=== PATIENT | female | born 1940 | race Caucasian/White ===

== ENCOUNTER 2023-09-20 00:37 | Emergency (ER) | payer MEDICARE, SELFPAY ==
--- NOTE | 2023-09-20 | ECG_ITS ---
Test Reason : SOB Blood Pressure : / mmHG Vent. Rate : 066 BPM Atrial Rate : 066 BPM P-R Int : 168 ms QRS Dur : 066 ms QT Int : 372 ms P-R-T Axes : 072 016 035 degrees QTc Int : 389 ms Normal sinus rhythm Septal infarct , age undetermined Abnormal ECG No previous ECGs available Referred By: Pierre Lauren Electronically Signed By:MARCY IYER
--- NOTE | ~2023-09-20 | XR_ITS ---
EXAMINATION: XR CHEST CLINICAL INFORMATION: Shortness of breath. COMPARISON: 07/22/2014 TECHNIQUE: Frontal view of the chest was obtained. FINDINGS: The cardiomediastinal silhouette is stable. There is no focal lung consolidation or pleural effusion. The bony structures and soft tissues are unremarkable. XR/XR chest 1V IMPRESSION: No acute cardiopulmonary process.
[2023-09-20 00:55] VITALS: BP 196/77; PULSE 69; RESP 18; TEMP 36.3; O2SAT 96; BMI 19.9
--- NOTE | 2023-09-20 01:03 | ED.GENADULT ---
HPI - General Adult General Chief complaint: General Medical Stated complaint: nausea/vomiting Time Seen by Provider: 09/20/23 00:49 Source: patient Mode of arrival: EMS Limitations: no limitations History of Present Illness HPI narrative: Patient history of hypertension COPD anxiety smoker been feeling weak since evening went to sleep on the couch woke up felt heart was beating fast , slightly diaphoretic no chest discomfort anxious worried about her weakness no upper respiratory symptoms does have chronic cough Related Data Allergies Allergy/AdvReac Type Severity Reaction Status Date / Time Sulfa (Sulfonamide Allergy Rash Verified 09/20/23 00:55 Antibiotics) Review of Systems Review of Systems: Yes all other systems are reviewed and are negative [facility] Past Medical History Medical History (Updated 09/20/23 @ 04:07 by Pierre Lauren MD) Anxiety COPD (chronic obstructive pulmonary disease) Hypertension Social History Social History Advance Directives: No Advance Directives Information Provided: No Physical Exam ED Vital Signs: Vital Signs - 24 hr 09/20/23 00:55 09/20/23 01:06 09/20/23 01:49 Temperature 97.4 F 98.0 F Pulse Rate 69 71 58 Respiratory Rate 18 15 18 Blood Pressure 196/77 H 160/60 H 158/69 H Pulse Oximetry 96 97 96 Oxygen Delivery Method Room Air Room Air Room Air 09/20/23 03:32 09/20/23 06:13 Temperature 98.0 F 98.2 F Pulse Rate 75 81 Respiratory Rate 18 16 Blood Pressure 158/64 H 152/67 H Pulse Oximetry 92 92 Oxygen Delivery Method Room Air Room Air BMI result Body Mass Index 19.9 Appearance: Alert. Oriented X3. No acute distress. Anxious Eyes: PERRLA, No Nystagmus ENT: Pharynx normal. Oral Mucosa moist Neck: Normal inspection. Neck supple. CVS: Normal heart rate and rhythm. Pulses normal. Respiratory: No respiratory distress. Equal air entry bilateral, prolonged expiratory Abdomen: Soft and nontender. Bowel sounds are present, Skin: Skin warm and dry. Normal skin color. Normal skin turgor. Extremities: No lower extremity edema. No calf tenderness Neuro: Oriented X 3. No motor deficit. No sensory deficit.No cerebellar signs , cranial nerves II-XII intact Medical Decision Making Medical Decision Making MDM Narrative: Patient is stable labs stable vitals with nonspecific weakness likely with discharge patient home advised to continue her medications and follow with PCP Differential Diagnosis Differential Diagnoses: The differential diagnosis associated with the presentation includes Viral syndrome/anxiety Lab Data [facility] Lab Attestation statement: I reviewed the patient's lab results. 09/20/23 01:16 09/20/23 01:16 Labs: Lab Results 09/20/23 09/20/23 Range/Units 01:16 01:59 WBC 7.0 (4.8-10.8) X10*3/uL RBC 5.23 (4.20-5.50) X10*6/uL Hgb 14.9 (12.0-16.0) g/dl Hct 44.0 (37.0-47.0) % MCV 84.1 (80.0-98.0) fL MCH 28.5 (27.0-33.0) pg MCHC 33.9 (31.0-35.0) g/dl RDW 12.9 (11.0-16.0) % Plt Count (160-400) X10*3/uL MPV 12.8 H (9.4-12.3) fL Immature Gran % (Auto) 0.1 (0.0-0.4) % Neut % (Auto) 51.7 (45-73) % Lymph % (Auto) 36.0 (20-40) % [place] % (Auto) 7.7 (2-11) % Eos % (Auto) 3.6 (0-4) % Baso % (Auto) 0.9 (0-2) % Lymph # (Auto) 2.5 (1.2-4.9) X10*3/uL [place] # (Auto) 0.5 (0.1-1.2) X10*3/uL Eos # (Auto) 0.3 (0.0-0.4) X10*3/uL Baso # (Auto) 0.1 (0.0-0.2) X10*3/uL Abs Immat Gran (auto) 0.01 (0.00-0.03) X10*3/uL Absolute Neuts (auto) 3.6 (2.0-8.3) x10*3/uL Absolute Nucleated RBC 0.000 (0.0-0.012) X10*3/uL Nucleated RBC % (auto) 0.0 (0.0-0.2) /100WBC Sodium 142 (135-145) mmol/L Potassium 4.3 (3.3-5.1) mmol/L Chloride 106 (96-108) mmol/L Carbon Dioxide 28 (22-29) mmol/L Anion Gap 12 (12-20) BUN 21 H (9-16) mg/dL Creatinine 1.24 (0.5-1.4) mg/dL Estim Creat Clear Calc 31.3 Estimated GFR 42 Random Glucose 92 (60-115) mg/dL Calcium 9.5 (8.4-10.2) mg/dL Magnesium 1.9 (1.6-2.6) mg/dL Total Bilirubin 0.4 (0.0-1.0) mg/dL AST 28 (5-31) U/L ALT 22 (0-31) U/L Alkaline Phosphatase 65 (39-117) U/L Troponin I High Sens 8.7 (<3.5-17.0) ng/L Total Protein 7.0 (6.5-8.0) g/dL Albumin 4.1 (3.5-5.0) g/dL Urine Color Yellow Urine Appearance Clear Urine pH 6.5 (5.0-9.0) Ur Specific [place] 1.015 (1.005-1.025) Urine Protein 100 (2+) H (Neg-Trace) mg/dL Urine Glucose (UA) Negative (Negative) mg/dL Urine Ketones Negative (Negative) mg/dL Urine Blood Negative (Negative) Urine Nitrite Negative (Negative) Ur Leukocyte Esterase Moderate (2+) H (Negative) Urine RBC 0-2 (0-2) /HPF Urine WBC 11-20 H (0-5) /HPF Ur Squamous Epith Cells 0-2 (0-2) /HPF Urine Bacteria None Seen (None Seen) Hyaline Casts 0-2 (0-2) /LPF COVID-19 (DIONE) Negative (Negative) COVID-19 Clin Com See Note Influenza Type A (MARILIA) Negative (Negative) Influenza Type B (MARILIA) Negative (Negative) Influenza A & B Note See Note Discharge Plan Discharge Clinical Impression: Anxiety, Weakness Patient Disposition: Home, Self-Care Instructions: Weakness (ED), Anxiety (ED) Additional Instructions: Continue your medications Drink and eat well Follow with PCP
[2023-09-20 01:06] VITALS: BP 160/60; PULSE 71; RESP 15; O2SAT 97
[2023-09-20 01:24] LABS: MANUAL DIFF FLAG NO
[2023-09-20 01:25] LABS: Basophils Absolute Auto 0.1 X10*3/uL (0.0-0.2); Basophils Percent Auto 0.9 % (0-2); Eosinophils Absolute Auto 0.3 X10*3/uL (0.0-0.4); Eosinophils Percent Auto 3.6 % (0-4); Hemoglobin 14.9 g/dl (12.0-16.0); Imm Gran Abs Auto 0.01 X10*3/uL (0.00-0.03); Imm Gran Pct Auto 0.1 % (0.0-0.4); Lymphocytes Absolute Auto 2.5 X10*3/uL (1.2-4.9); Mean Corpuscular HGB Conc 33.9 g/dl (31.0-35.0); Mean Corpuscular Hemoglobin 28.5 pg (27.0-33.0); Mean Corpuscular Volume 84.1 fL (80.0-98.0); Mean Platelet Volume 12.8 fL (9.4-12.3); Monocytes Absolute Auto 0.5 X10*3/uL (0.1-1.2); Monocytes Percent Auto 7.7 % (2-11); Neutrophils Absolute Auto 3.6 x10*3/uL (2.0-8.3); Neutrophils Percent Auto 51.7 % (45-73); Red Blood Count 5.23 X10*6/uL (4.20-5.50); Red Cell Distribution Width 12.9 % (11.0-16.0)
[2023-09-20 01:39] LABS: COVID-19 Test Negative (Negative); IDNOW Serial# 08D9AD1C; IDNOW Serial# 152EDE1D; Influenza A Negative (Negative); Influenza B2 Negative (Negative)
[2023-09-20 01:49] VITALS: BP 158/69; PULSE 58; RESP 18; TEMP 36.7; O2SAT 96
[2023-09-20 01:50] LABS: Alanine Aminotransferase 22 U/L (0-31); Albumin Level 4.1 g/dL (3.5-5.0); Alkaline Phosphatase 65 U/L (39-117); Anion Gap 12 (12-20); Aspartate Amino Transferase 28 U/L (5-31); Bilirubin Total 0.4 mg/dL (0.0-1.0); Blood Urea Nitrogen 21 mg/dL (9-16); Calcium 9.5 mg/dL (8.4-10.2); Carbon Dioxide 28 mmol/L (22-29); Chloride 106 mmol/L (96-108); Creatinine Clr Calc Pharmacy 31.3; Estimated Glomerular Filt Rate 42; Glucose Random 92 mg/dL (60-115); Magnesium 1.9 mg/dL (1.6-2.6); Potassium 4.3 mmol/L (3.3-5.1); Sodium 142 mmol/L (135-145)
--- NOTE | 2023-09-20 01:54 | MHC.EDTECH ---
Patient ambulated to the bathroom with a steady gait,urine sample obtained and sent to lab.Vitals taken and patient is resting at this time. Call muniz in reach
[2023-09-20 01:58] LABS: Troponin-I High Sensitivity 8.7 ng/L (<3.5-17.0)
[2023-09-20 02:05] LABS: Appearance Urine Clear; Color Urine Yellow; Glucose Urine UA Negative (Negative); Leukocyte Esterase Urine Moderate (2+) (Negative); Nitrite Urine Negative (Negative); PH 6.5 (5.0-9.0); Specific Gravity - Urine 1.015 (1.005-1.025); UMIC TRIGGER UACC YES; Urine Blood Negative (Negative); Urine Ketones Negative (Negative); Urine Protein 100 (2+) mg/dL (Neg-Trace)
[2023-09-20 02:13] LABS: Bacteria Urine None Seen (None Seen); Hyaline Casts Urine 0-2 /LPF (0-2); RBC Urine 0-2 /HPF (0-2); Squamous Epithelial Cell Urine 0-2 /HPF (0-2); UACC Culture Trigger YES
[2023-09-20 03:32] VITALS: BP 158/64; PULSE 75; RESP 18; TEMP 36.7; O2SAT 92
--- NOTE | 2023-09-20 03:35 | MHC.EDTECH ---
Hourly rounds and vitals completed,patient is resting comfortably,warm blanket giving and call muniz in reach
--- NOTE | 2023-09-20 04:18 | PC.NURSE ---
Pt requesting to speak with provider. Provider notified. Plan of care ongoing.
[2023-09-20 06:13] VITALS: BP 152/67; PULSE 81; RESP 16; TEMP 36.8; O2SAT 92
--- NOTE | 2023-09-20 06:55 | PC.NURSE ---
Pt ca&ox4, no signs of distress. Pt calling daughter for spanish moss picker. Pt denies pain.
== END 2023-09-20 07:25 | disposition home or self-care (01) ==
PROVIDERS: Emergency Provider Internal Medicine; PCP Nurse Practitioner Family
DX: R53.1 Weakness (principal); F41.9 Anxiety disorder, unspecified; Z11.52 Encounter for screening for COVID-19; I10 Essential (primary) hypertension; J44.9 Chronic obstructive pulmonary disease, unspecified; F17.200 Nicotine dependence, unspecified, uncomplicated
CPT/HCPCS: 71045; 80053; 81001; 83735; 84484; 85025; 87086; 87502; 87635; 93005; 99283; 99284

== ENCOUNTER → 2023-09-20 00:56 | Outpatient (BNV) | payer MEDICARE, SELFPAY | PROVIDERS: Emergency Provider Internal Medicine; PCP Nurse Practitioner Family; Visit Provider Internal Medicine | DX: R06.02 Shortness of breath (principal); R94.31 Abnormal electrocardiogram [ECG] [EKG] | CPT/HCPCS: 93010 ==